=== PATIENT | female | born 1995 | race Two or more races ===

== ENCOUNTER 2017-04-22 20:18 | Emergency (ER) | payer OTHER ==
[~2017-04-22] VITALS: Ht 160 cm; Wt 85.3 kg
[~2017-04-22 20:18] MED LIST: ACYCLOVIR400 MG PO; ACYCLOVIR800 MG PO; ASCORBIC ACID500 M3 PO; BACTRIM,SEPT1 TABLET PO; CITRATE OF MAG296 ML PO; ENDOCET 5-3251 EACH PO; EXCEDRIN MIGRA1 EAC3 PO; FERROUS SULFAT325 MG PO; FIORICET,ESG1 TABLET PO; FLAGYL500 MG PO; IBUPROFEN800 MG PO; MACROBID100 MG PO; MIRALAX255 GM PO; NOHOMEMEDS; OMEPRAZOLE20 MG PO; PRENA1 CHEW TA1.4 MG PO; PRENATAL TABLE1 EAC3 PO; PROMETHAZINE HC25 M1 PO; REGLAN10 MG PO
[2017-04-22 21:02] LABS: EOSINOPHIL COUNT 0.1 K/uL (0-0.3); HEMATOCRIT 41.8 % (36.0-46.0); IMMATURE GRANULOCYTE (%) 0.6 % (0.0-0.7); IMMATURE GRANULOCYTE COUNT 0.1 K/uL; INSTRUMENT ABS NEUTROPHIL CT 6.4 K/uL; LYMPHOCYTE COUNT 3.4 K/uL (1.0-2.8); MCH 27.3 PG (29.0-34.0); MCHC 33.5 G/DL (30.0-36.0); MCV 81.6 FL (83-99); MEAN PLAT.VOLUME 10.8 uM^3 (9.5-12.4); MONOCYTE COUNT 0.5 K/uL (0-0.8); NEUTROPHIL (%) 60.6 % (45-76); NEUTROPHIL COUNT 6.4 K/uL (1.8-6.4); PLATELET COUNT 240 K/uL (156-360); RBC DIS.WIDTH-CV 12.1 % (11.8-14.6); RBC DIS.WIDTH-SD 36.2 % (39-53); RED BLOOD COUNT 5.12 M/uL (3.80-5.20); WHITE BLOOD COUNT 10.5 K/uL (4.1-10.2)
[2017-04-22 21:12] LABS: CHLORIDE 107 mEq/L (99-109); POTASSIUM 3.8 mEq/L (3.7-5.4); SODIUM 139 mEq/L (136-147)
[2017-04-22 21:14] LABS: GLUCOSE 104 mg/dL (70-99)
[2017-04-22 21:16] LABS: ANION GAP 8 MEQ/L (2-14); TOTAL BILIRUBIN 0.2 mg/dL (0.0-1.0)
[2017-04-22 21:18] LABS: ALKALINE PHOSPHATASE 73 IU/L (3-129); GFR ESTIMATE (CALCULATED) > 59 mL/min/
[2017-04-22 21:19] LABS: UREA NITROGEN (BUN) 16 mg/dL (9-23)
[2017-04-22 21:21] LABS: LIPASE 47 U/L (1.0-51.0)
[2017-04-22 21:30] LABS: QUANTITATIVE HCG < 4.0 MIU/ML
[2017-04-22 23:41] LABS: ADD MIUA? NO; BILIRUBIN NEGATIVE; BLOOD NEGATIVE; COLOR YELLOW ((YELLOW)); GLUCOSE (STRIP) NEGATIVE; KETONES NEGATIVE; LEUKOCYTES NEGATIVE; NITRITE NEGATIVE; PROTEIN (STRIP) 30; UROBILINOGEN 0.2 MG/DL (0.2-1.0)
[2017-04-23] MEDS ORDERED: INDOCIN25 MG PO (00:30)
[2017-04-23 01:21] VITALS: BP 128/69
[2017-04-24 13:36] LABS: CHLAMYDIA TRACHOMATIS NEGATIVE; NEISSERIA GONORRHOEAE NEGATIVE
== END 2017-04-23 01:23 | disposition home or self-care (01) ==
LOC: EME 20:18
PROVIDERS: Physician Assistant
DX: N72 Inflammatory disease of cervix uteri (principal); R10.31 Right lower quadrant pain; R11.0 Nausea; K59.00 Constipation, unspecified; F17.200 Nicotine dependence, unspecified, uncomplicated
CPT/HCPCS: 74177; 76856; 80053; 81003; 83690; 84702; 85025; 87210; 87491; 87591; 99281; 99285; J0696; J1885; J3010; J7030

== ENCOUNTER 2017-06-21 23:47 | Day surgery (SDC) | payer OTHER ==
[~2017-06-21] VITALS: Ht 162.6 cm; Wt 86.9 kg
[~2017-06-21 23:47] MED LIST changes: +INDOCIN25 MG PO
[2017-06-22 00:32] LABS: HEMATOCRIT 35.5 % (36.0-46.0); MCH 28.1 PG (29.0-34.0); MCHC 34.1 G/DL (30.0-36.0); MCV 82.6 FL (83-99); MEAN PLAT.VOLUME 10.1 uM^3 (9.5-12.4); PLATELET COUNT 199 K/uL (156-360); RBC DIS.WIDTH-CV 12.7 % (11.8-14.6); WHITE BLOOD COUNT 10.7 K/uL (4.1-10.2)
[2017-06-22 01:22] LABS: COLOR RED ((YELLOW))
[2017-06-22 01:36] LABS: ADD MIUA? YES; BILIRUBIN NEGATIVE; BLOOD LARGE; GLUCOSE (STRIP) NEGATIVE; KETONES NEGATIVE; LEUKOCYTES MODERATE; NITRITE NEGATIVE; PROTEIN (STRIP) 100; SPECIFIC GRAVITY 1.025 (1.000-1.030); UROBILINOGEN 0.2 MG/DL (0.2-1.0)
[2017-06-22 01:39] LABS: RED BLOOD CELLS TNTC /HPF (0-5); UCUL ADDED? YES; WHITE BLOOD CELLS 20-30 /HPF (0-5)
[2017-06-22] MEDS ORDERED: HYDROCODON-ACE1 EAC7 PO (05:16)
[2017-06-22] MEDS ORDERED: IBUPROFEN800 MG PO (05:16)
[2017-06-22 05:50] VITALS: BP 116/59
[2017-06-22 08:00] VITALS: BP 121/63
== END 2017-06-22 10:14 | disposition home or self-care (01) ==
LOC: EME 23:47 → ENRESERV 06-22 04:04 → EME 06-22 04:26 → SDC 06-22 04:26 → ENRESERV 06-22 04:48 → 2SOUTH 06-22 04:52 → 2EASTP 06-22 06:37
PROC: 10D17ZZ Extraction of Products of Conception, Retained, Via Natural or Artificial Opening (ICD-10-PCS; principal; 2017-06-22)
DX: O04.6 Delayed or excessive hemorrhage following (induced) termination of pregnancy (principal); R42 Dizziness and giddiness; F17.210 Nicotine dependence, cigarettes, uncomplicated; Z79.82 Long term (current) use of aspirin
CPT/HCPCS: 76856; 81003; 84702; 85027; 86850; 86900; 86901; 87086; 88305; 99281; 99285; G0378; J0330; J0690; J1050; J1885; J2250; J2405; J3010; J7030; J7120

== ENCOUNTER 2017-12-06 00:57 | Emergency (ER) | payer OTHER ==
[~2017-12-06] VITALS: Ht 160 cm; Wt 88.2 kg
[~2017-12-06 00:57] MED LIST changes: +HYDROCODON-ACE1 EAC7 PO
[2017-12-06 01:00] VITALS: BP 155/80
[2017-12-06 01:34] LABS: APPEARANCE SL.HAZY ((CLEAR)); BILIRUBIN NEGATIVE; BLOOD SMALL; COLOR YELLOW ((YELLOW)); GLUCOSE (STRIP) NEGATIVE; KETONES NEGATIVE; LEUKOCYTES NEGATIVE; NITRITE NEGATIVE; PROTEIN (STRIP) 30; SPECIFIC GRAVITY 1.027 (1.000-1.030)
[2017-12-06 01:44] LABS: BACTERIA NONE SEEN /HPF; EPITHELIAL CELLS RARE /HPF; MUCUS TRACE /LPF; UCUL ADDED? NO; WHITE BLOOD CELLS 0-5 /HPF (0-5)
[2017-12-06 03:31] LABS: BASOPHIL (%) 0.6 % (0-1); BASOPHIL COUNT 0.1 K/uL (0-0.1); EOSINOPHIL (%) 0.7 % (0-5); EOSINOPHIL COUNT 0.1 K/uL (0-0.3); HEMATOCRIT 39.9 % (36.0-46.0); HEMOGLOBIN 13.8 G/DL (11.9-15.5); IMMATURE GRANULOCYTE (%) 0.6 % (0.0-0.7); LYMPHOCYTE COUNT 2.7 K/uL (1.0-2.8); MCH 28.1 PG (29.0-34.0); MCHC 34.6 G/DL (30.0-36.0); MCV 81.3 FL (83-99); MONOCYTE (%) 5.6 % (3-12); MONOCYTE COUNT 0.7 K/uL (0-0.8); NEUTROPHIL (%) 70.5 % (45-76); NEUTROPHIL COUNT 8.7 K/uL (1.8-6.4); PLATELET COUNT 224 K/uL (156-360); RBC DIS.WIDTH-CV 12.9 % (11.8-14.6); RED BLOOD COUNT 4.91 M/uL (3.80-5.20); WHITE BLOOD COUNT 12.3 K/uL (4.1-10.2)
[2017-12-06 03:52] LABS: SOURCE SWAB
[2017-12-06 04:24] LABS: CHLORIDE 107 MEQ/L (99-109); CREATININE 0.6 MG/DL (0.6-1.3); GFR ESTIMATE (CALCULATED) > 59 mL/min/; GLUCOSE 99 mg/dL (70-99); POTASSIUM 3.7 MEQ/L (3.7-5.4); SODIUM 139 MEQ/L (136-147); UREA NITROGEN (BUN) 16 mg/dL (9-23)
[2017-12-06] MEDS ORDERED: FLAGYL500 MG PO (05:17)
[2017-12-06 19:09] LABS: CANDIDA DNA PROBE NEGATIVE; GARDNERELLA DNA PROBE NEGATIVE; TRICHOMONAS DNA PROBE NEGATIVE
== END 2017-12-06 05:48 | disposition home or self-care (01) ==
LOC: EME 00:57
PROVIDERS: Emergency Medicine
DX: R10.2 Pelvic and perineal pain (principal); N93.0 Postcoital and contact bleeding; R11.0 Nausea; Z97.5 Presence of (intrauterine) contraceptive device; Z11.3 Encounter for screening for infections with a predominantly sexual mode of transmission; F17.200 Nicotine dependence, unspecified, uncomplicated
CPT/HCPCS: 76856; 80048; 81003; 81025; 85025; 87070; 87210; 87480; 87491; 87510; 87591; 87660; 99281; 99284; J0696

== ENCOUNTER 2018-03-06 03:01 | Emergency (ER) | payer OTHER ==
[~2018-03-06] VITALS: Ht 160 cm; Wt 84.9 kg
[2018-03-06 03:05] VITALS: BP 135/82
[2018-03-06] MEDS ORDERED: ATARAX,VISTARIL50 MG PO (03:44)
[2018-03-06] MEDS ORDERED: ELIMITE 5% CREA60 GM TP (03:44)
== END 2018-03-06 04:40 | disposition home or self-care (01) ==
LOC: EME 03:01
DX: B86 Scabies (principal); F17.200 Nicotine dependence, unspecified, uncomplicated
CPT/HCPCS: 99281; 99283; Q0177